=== PATIENT | male | born 1995 | race Caucasian/White ===

== ENCOUNTER 2018-07-10 12:48 | Inpatient (IN) | payer OTHER ==
[2018-07-10] MEDS ORDERED: LR 1,000 ML IV SCH (12:54)
[2018-07-10] MEDS ORDERED: ACETAMINOPHEN 500 MG TAB PO ONE (12:54)
[2018-07-10] MEDS ORDERED: ceFAZolin 2 GM/DEXTROSE 100 ML IV ONE (12:54)
[2018-07-10] MEDS ORDERED: LIDOCAINE 1% 2 ML INJ ID PRN (12:55)
[2018-07-10] MEDS ORDERED: LR 1,000 ML IV ONE (12:55)
[2018-07-10] MEDS ORDERED: CEFAZOLIN 2 GM/DEXTROSE/100 ML BAG IV ONE (13:06)
[2018-07-10] MEDS ORDERED: IOPAMIDOL (ISOVUE 370) 100 ML BTL IV ONE (14:31)
--- NOTE | 2018-07-10 15:03 | PDHOSCONS ---
<Mai Downing - Last Filed: 07/10/18 15:31> History and Physical - Chief Complaint Tachycardia, hypoxemia - History of Present Illness 23 y/o male w/ hx of irritable bowel syndrome and thrombocytopenia presents w/ tachycardia and hypoxemia. He was in [place] on Sunday for her sister's spring break and was rollerblading and subsequently fractured his right tibia. I did not inquire how exactly this happened. He went to urgent care where they splinted his right leg. Him and his family drove back to [employer] on Sunday which was approximately 10 hours worth of driving where he was in the backseat w /his RLE elevated however immobile. Since his injury, he has been sedentary. On Sunday, he was evaluated by orthopedics and it was decided to proceed w/ surgery w/pinning. Leading up to today however, he has been vomiting, febrile, decreased urine output because of decreased PO intake, and lightheaded. He denies CP, palpitations, SOB, nausea, diarrhea. Presenting today it was reported he was hypoxemic w/RA in 70s and HR 120s. Hospital medicine has been asked to consult the pt for medical management. This is my first encounter w/the pt. I evaluated him in pre-op. He was lying supine, his face flushed saturating w/ 3LNC 94% HR 120, EKG Sinus tachycardia, mildly distressed, able to complete full sentences w/o appearing to be out of breath. History Information - Allergies/Home Medication List Allergies/Adverse Reactions: bacitracin [From Neosporin ([id number])] Allergy (Verified 07/09/18 16:58) Other-Enter Comments neomycin [From Neosporin ([id number])] Allergy (Verified 07/09/18 16:58) Other-Enter Comments polymyxin B [From Neosporin ([id number])] Allergy (Verified 07/09/18 16:58) Other-Enter Comments Home Medications: Acetaminophen [Tylenol ES 500 mg (*)] 500 mg PO Q4-6PRN PRN 07/10/18 [Last Taken 07/10/18 10:00] Albuterol [Proventil Inhaler HFA (*)] 1 - 2 puffs IH Q4H PRN 07/10/18 [Last Taken 07/10/18 09:00] Hyoscyamine Sulfate [Levsin, Hyomax-Sl 0.125 mg (*)] 0.125 mg PO DAILY PRN 07/10 [Last Taken 06/26/18] Sennosides/Docusate Sodium [Senokot-S (OTC)] 1 - 2 each PO BID PRN 07/10/18 [ Last Taken 07/09/18] oxyCODONE HCL [Oxycodone HCl] 5 - 10 mg PO Q4H PRN 07/10/18 [Last Taken 10:00] I have personally reviewed and updated: family history, medical history, social history, surgical history Past Medical History: IBS. Thrombocytopenia. 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 Lives in [place], [place] Review of Systems Review of Systems: ROS: 10pt was reviewed & negative except for what was stated in HPI & below Physical Exam Physical Exam: Lab data and imaging were reviewed. Case discussed w/ Dr. Lozano and Dr. Christopher Chand WBC: 11.24 BUN/Cr: 12/0.8 EKG: see HPI Chest CTA w/contrast: bilateral PNA Constitutional: uncomfortable Eyes: PERRL, anicteric sclera, EOMI Ears, Nose, Mouth, Throat: moist mucous membranes, hearing normal, ears appear normal, no oral mucosal ulcers Cardiovascular: regular rate and rhythym, no murmur, rub, or gallop, tachycardia Peripheral Pulses: 0: dorsalis-pedis (R) (Unable to assess; splinted. Able to wiggle toes, sensation intact), 2+: dorsalis-pedis (L) Respiratory: reduced air movement Gastrointestinal: normoactive bowel sounds, soft, non-tender abdomen, no palpable masses Genitourinary: no bladder fullness, no bladder tenderness Skin: warm, normal color, no rashes or abrasions, no fluctuance, no induration, No mottled Musculoskeletal: pain with ROM (RLE) Neurologic: AAOx3, sensation intact bilaterally, CN II-XII Intact Psychiatric: interacting appropriately, not anxious, not encephalopathic, thought process linear Lymph, Heme, Immunologic: no cervical LAD, no supraclavicular LAD Lab Data & Imaging Review 07/10/18 14:15 07/10/18 14:15 Sodium 135 mEq/L (135-145) 07/10/18 14:15 Potassium 4.8 mEq/L (3.5-5.2) 07/10/18 14:15 Chloride 100 mEq/L (97-110) 07/10/18 14:15 Carbon Dioxide 24 mEq/l (22-31) 07/10/18 14:15 Anion Gap 11 mEq/L (6-14) 07/10/18 14:15 BUN 12 mg/dL (7-23) 07/10/18 14:15 Creatinine 0.8 mg/dL (0.7-1.3) 07/10/18 14:15 Estimated GFR > 60 07/10/18 14:15 Glucose 110 mg/dL (70-100) H 07/10/18 14:15 Calcium 8.7 mg/dL (8.5-10.4) 07/10/18 14:15 Total Bilirubin 1.1 mg/dL (0.1-1.4) 07/10/18 14:15 AST 73 IU/L (17-59) H 07/10/18 14:15 ALT 192 IU/L (21-72) H 07/10/18 14:15 Alkaline Phosphatase 97 IU/L (38-126) 07/10/18 14:15 Total Protein 6.7 g/dL (6.3-8.2) 07/10/18 14:15 Albumin 3.9 g/dL (3.5-5.0) 07/10/18 14:15 Assessment & Plan Plan: 23 y/o male presenting w/ right tibia fracture and was scheduled for IM nailing today w/Dr. Lozano however presented hypoxemic and tachycardic. Upon further imaging w/ Chest CTA reveals bilateral pneumonia, no pulmonary embolism(s). Current vital signs are: BP 131/76, HR 115, Resp 24, 37.6c, 93% 3L NC. Plan: -Doppler of RLE as best as possible -Treat w/ Azithromycin PO + Rocephin; procalcitonin/urine legionella + streptococcus pneumo/respiratory pathogen panel pending -Cont IVF + pulse ox monitoring -Tylenol PRN for fever -Pain management PO/IVP PRN Diet: If Ok'ed by ortho, may be Regular VTE ppx: Per recommendation from Ortho. Left leg SCD for now. Code: Full Dispo: Admit to inpatient <Ke Ferguson - Last Filed: 07/11/18 01:00> History and Physical - History of Present Illness Review of Systems Review of Systems: Physical Exam Physical Exam: Temp Pulse Resp BP Pulse Ox 37.7 C 118 H 16 114/69 93 07/11/18 00:00 07/11/18 00:00 07/11/18 00:00 07/11/18 00:00 07/11/18 00:00 O2 (L/minute) 3.5 Lab Data & Imaging Review 07/10/18 14:15 07/10/18 14:15 WBC 11.24 10^3/uL (3.80-9.50) H 07/10/18 14:15 RBC 4.32 10^6/uL (4.40-6.38) L 07/10/18 14:15 Hgb 13.7 g/dL (13.7-17.5) 07/10/18 14:15 Hct 40.2 % (40.0-51.0) 07/10/18 14:15 MCV 93.1 fL (81.5-99.8) 07/10/18 14:15 MCH 31.7 pg (27.9-34.1) 07/10/18 14:15 MCHC 34.1 g/dL (32.4-36.7) 07/10/18 14:15 RDW 14.6 % (11.5-15.2) 07/10/18 14:15 Plt Count 132 10^3/uL (150-400) L 07/10/18 14:15 MPV 15.2 fL (8.7-11.7) H 07/10/18 14:15 Neut % (Auto) 83.1 % (39.3-74.2) H 07/10/18 14:15 Lymph % (Auto) 7.8 % (15.0-45.0) L 07/10/18 14:15 [place] % (Auto) 7.9 % (4.5-13.0) 07/10/18 14:15 Eos % (Auto) 0.4 % (0.6-7.6) L 07/10/18 14:15 Baso % (Auto) 0.4 % (0.3-1.7) 07/10/18 14:15 Nucleat RBC Rel Count 0.0 % (0.0-0.2) 07/10/18 14:15 Absolute Neuts (auto) 9.34 10^3/uL (1.70-6.50) H 07/10/18 14:15 Absolute Lymphs (auto) 0.88 10^3/uL (1.00-3.00) L 07/10/18 14:15 Absolute Monos (auto) 0.89 10^3/uL (0.30-0.80) H 07/10/18 14:15 Absolute Eos (auto) 0.04 10^3/uL (0.03-0.40) 07/10/18 14:15 Absolute Basos (auto) 0.04 10^3/uL (0.02-0.10) 07/10/18 14:15 Absolute Nucleated RBC 0.00 10^3/uL (0-0.01) 07/10/18 14:15 Immature Gran % 0.4 % (0.0-1.1) 07/10/18 14:15 Immature Gran # 0.05 10^3/uL (0.00-0.10) 07/10/18 14:15 PT 13.1 SEC (12.0-15.0) 07/10/18 15:00 INR 1.03 (0.83-1.16) 07/10/18 15:00 APTT 29.9 SEC (23.0-38.0) 07/10/18 15:00 VBG Lactic Acid 1.0 mmol/L (0.7-2.1) 07/10/18 19:40 Sodium 135 mEq/L (135-145) 07/10/18 14:15 Potassium 4.8 mEq/L (3.5-5.2) 07/10/18 14:15 Chloride 100 mEq/L (97-110) 07/10/18 14:15 Carbon Dioxide 24 mEq/l (22-31) 07/10/18 14:15 Anion Gap 11 mEq/L (6-14) 07/10/18 14:15 BUN 12 mg/dL (7-23) 07/10/18 14:15 Creatinine 0.8 mg/dL (0.7-1.3) 07/10/18 14:15 Estimated GFR > 60 07/10/18 14:15 Glucose 110 mg/dL (70-100) H 07/10/18 14:15 Calcium 8.7 mg/dL (8.5-10.4) 07/10/18 14:15 Total Bilirubin 1.1 mg/dL (0.1-1.4) 07/10/18 14:15 AST 73 IU/L (17-59) H 07/10/18 14:15 ALT 192 IU/L (21-72) H 07/10/18 14:15 Alkaline Phosphatase 97 IU/L (38-126) 07/10/18 14:15 Total Protein 6.7 g/dL (6.3-8.2) 07/10/18 14:15 Albumin 3.9 g/dL (3.5-5.0) 07/10/18 14:15 Procalcitonin 0.36 ng/mL (0.02-0.10) H 07/10/18 15:19 Assessment & Plan Assessment: I have seen the patient reviewed the chart and labs and agree with ROCIO Downing in her assessment and plan.
[2018-07-10 15:06] LABS: PLATELET COUNT 132 10^3/uL (150-400)
--- NOTE | 2018-07-10 15:13 | GHP ---
[f rep st] PREOP HISTORY AND PHYSICAL DATE OF ADMISSION: 07/10/2018 HISTORY OF PRESENT ILLNESS: This is a 23-year-old male who, on 07/06, fell while roller skating in [facility]. He sustained a tibial shaft fracture. He was placed in a splint and told to return to [facility] by the emergency room there. He did drive back to [place]. He presented to my clinic where he was seen by my PA and me on Sunday, 2 days ago. He did not seem in any acute distress at that time; complained of some pain in the leg, and we made arrangements for fixation of his tibia with intramed ullary nail. There was no history given of any shortness of breath, chest pain, problems with oxygen saturation, or history of pulmonary embolus or DVT. Today, in the preoperative area when he presented before surgery, he had low saturations in the 70s, which did come up on some oxygen, and he was tachycardic to the 120s and 130s. I felt this was very concerning for pulmonary embolus and decision was made to cancel surgery and do further workup for th is with admission to the hospital. REVIEW OF SYSTEMS: GENERAL: Denies fevers or recent weight changes. EYES: Denies. ENT: Denies. CARDIOVASCULAR: He does have a history of thrombocytopenia. Also has had, on a home pulse ox, some saturations in the 80s as of Sunday night, which we were unaware of beforehand. RESPIRATORY: He st ill denies chest pain, shortness of breath. GI: Denies. : Denies. SKIN: Denies. EXTREMITIES: Complains of pain in the lower extremity. NEURO: Denies. PAST MEDICAL HISTORY: Significant for depression, thrombocytopenia, and asthma, as well as anxiety. MEDICATIONS: Home medications are hyoscyamine, as well as albuterol. ALLERGIES: No known drug allergies. FAMILY HISTORY: Reviewed and noncontributory. SURGICAL HISTORY: Noncontributory. PHYSICAL EXAMINATION: GENERAL: He is alert. He does appear in mild distress today in the preop are a. HEENT: His head is normocephalic. His eyes are equal. His mouth shows moist mucous membranes. NECK: Supple. CHEST: Clear. HEART: Does sound regular rate and rhythm. ABDOMEN: Soft. EXTREM ITIES: His upper extremities are without abnormalities. Lower extremity remains in a splint. There is no obvious increase in swelling in the right or left lower extremity. He can move his toes. He has good cap refill in his toes. VITAL SIGNS: He is tachycardic at 125, and he has a pulse ox of 92 on 3 L of oxygen. ASSESSMENT: Possible pulmonary embolus, right tibia fracture, tachycardia. PLAN: Given the concerning signs and symptoms for possibly a pulmonary embolus, we will cancel surge ry and postpone this at this time. We will initiate a workup including a CT PE protocol; Doppler of his lower extremities, we will include as much of the right lower extremity as we can given the known fracture; an EKG. We will get a CMP and CBC. He is currently being seen by the hospitalist as well in consultation. We will admit him to the hospital and, depending on the results of the workup, we will plan further surgical intervention to fix his tibia fracture. /[id number]/MODL
[2018-07-10] MEDS ORDERED: ALBUTEROL 60 PUFFS/8 GM MDI IH PRN (15:27)
[2018-07-10] MEDS ORDERED: HYOSCYAMINE SULFATE 0.125 MG TAB PO PRN (15:28)
[2018-07-10] MEDS: ACETAMINOPHEN 325 MG TAB PO PRN (15:41)
[2018-07-10] MEDS: AZITHROMYCIN 250 MG TAB PO SCH (15:41)
[2018-07-10] MEDS: NS 1,000 ML IV SCH (15:41)
[2018-07-10 15:43] LABS: INR 1.03 (0.83-1.16); PROTIME(PATIENT) 13.1 SEC (12.0-15.0)
[2018-07-10] MEDS: oxyCODONE IR 5 MG TAB PO PRN ×3 (15:44→22:55)
[2018-07-10] MEDS: ONDANSETRON 4 MG/2 ML VIAL IVP PRN (15:51)
[2018-07-10] MEDS ORDERED: SENNOSIDES/DOCUSATE SODIUM TAB PO PRN (15:57)
--- NOTE | 2018-07-10 16:47 | CPEKG ---
Test Reason : OPEN Blood Pressure : / mmHG Vent. Rate : 121 BPM Atrial Rate : 123 BPM P-R Int : 139 ms QRS Dur : 081 ms QT Int : 292 ms P-R-T Axes : 051 013 034 degrees QTc Int : 415 ms Sinus tachycardia Possible left atrial enlargement Confirmed by Jose F Fregoso ([id number]) on 07/10/2018 4:47:34 PM Referred By: Julina Lozano Confirmed By:Jose F Fregoso
--- NOTE | 2018-07-10 17:11 | PDMN ---
Medical Necessity Medical necessity: Pt meets inpt criteria per MD order and MCG [id number], Pneumonia. 23 y/o w/recent tibial shaft fx arrived for scheduled surg today,in pre-op was found to be hypoxemic w/RA sats in 70's and tachycardic w/HR 120s- 130s. Surgery canceled for today for further workup. Chest CTA reveals bilateral pneumonia, procalcitonin elevated at .36, WBC's 11.2. IV abx's, IVF, pain management, 3L O2 (93%), surg intervention to fix tibia fx pending.
[2018-07-10] MEDS: ENOXAPARIN 30 MG/0.3 ML SYR SC SCH ×2 (18:11→20:59)
[2018-07-10] MEDS ORDERED: MAGNESIUM HYDROXIDE 30 ML UDCUP PO PRN (18:42)
[2018-07-10] MEDS ORDERED: LACTULOSE 20 GM/30 ML UDCUP PO PRN (18:42)
[2018-07-10] MEDS ORDERED: BISACODYL 10 MG SUPP PR PRN (18:42)
[2018-07-10] MEDS: POLYETHYLENE GLYCOL 3350 17 GM PKT PO PRN (18:56)
[2018-07-10] MEDS ORDERED: NS 2,200 ML IV ONE (19:01)
[2018-07-10] MEDS: SENNOSIDES/DOCUSATE SODIUM TAB PO SCH (20:58)
[2018-07-10] MEDS: HYDROmorphONE/DILAUDID 1 MG/ML INJ IVP PRN (21:18)
[2018-07-11] MEDS: oxyCODONE IR 5 MG TAB PO PRN ×7 (03:11→22:58)
[2018-07-11] MEDS: HYDROmorphONE/DILAUDID 1 MG/ML INJ IVP PRN ×2 (04:13→15:24)
[2018-07-11] MEDS ORDERED: DIAZEPAM 5 MG TAB PO PRN (04:28)
[2018-07-11] MEDS: NS 1,000 ML IV SCH ×2 (06:00→13:20)
[2018-07-11] MEDS: ACETAMINOPHEN 325 MG TAB PO PRN (07:26)
[2018-07-11] MEDS: SENNOSIDES/DOCUSATE SODIUM TAB PO SCH ×2 (07:28→19:59)
[2018-07-11] MEDS: POLYETHYLENE GLYCOL 3350 17 GM PKT PO PRN (07:29)
[2018-07-11] MEDS: AZITHROMYCIN 250 MG TAB PO SCH (07:29)
[2018-07-11] MEDS: ENOXAPARIN 30 MG/0.3 ML SYR SC SCH ×2 (07:31→19:58)
--- NOTE | 2018-07-11 08:46 | HOSPPROG ---
Hospitalist Progress Note Assessment/Plan: 23 y/o male presenting w/ right tibia fracture and was scheduled for IM nailing today w/Dr. Lozano however presented hypoxemic and tachycardic. Upon further imaging w/ Chest CTA reveals bilateral pneumonia, no pulmonary embolism. First encounter, chart reviewed. *pna -blood cx pending -procalcitonin elevated at 0.36 -urine legionella, Strep pneumo pending -azithro and ceftriaxone -has small bilateral pleural effusions *tachycardia -from pain and pna -reviewed his 12 lead which shows sinus tachycardia *thrombocytopenia -hx of this, no clear cut etiology *r lower lobe noncalcified, non specific 10 mm lung nodule -will need repeat imaging in 3 months -patient is a non smoker *hx of IBS *r tibia fx -OR tomorrow -pain has been the issue w sedation, trial of Robaxin *DVT prophylaxis: Lovenox per ortho Subjective: Leonid is c/o right lower leg pain. Objective: Vital Signs Temp Pulse Resp BP Pulse Ox 37.2 C 114 H 18 114/73 95 07/11/18 07:48 07/11/18 07:48 07/11/18 07:48 07/11/18 07:48 07/11/18 07:48 Microbiology 07/10/18 18:15 Respiratory Panel (PCR) - Final Nasal, Sinus - Swab No Organism Detected By Pcr Laboratory Results 07/10/18 14:15 07/10/18 14:15 07/10/18 07/11/18 07/12/18 05:59 05:59 05:59 Intake Total 475 3025 Output Total 1975 400 Balance -1500 2625 PT 13.1 SEC (12.0-15.0) 07/10/18 15:00 INR 1.03 (0.83-1.16) 07/10/18 15:00 - Physical Exam Constitutional: appears nourished, uncomfortable, No not in pain Eyes: PERRL Ears, Nose, Mouth, Throat: hearing normal Cardiovascular: regular rate and rhythym, tachycardia Respiratory: no respiratory distress Skin: warm, other (right toes warm), No normal color (flushed) Neurologic: AAOx3 Psychiatric: interacting appropriately ICD10 Worksheet Patient Problems: Problems Problem Status Onset Pneumonia Acute - ICD10 Problem Qualifiers (1) Pneumonia Qualifiers: Laterality: bilateral
[2018-07-11] MEDS: METHOCARBAMOL 750 MG TAB PO PRN ×3 (09:03→16:17)
[2018-07-11] MEDS: ACETAMINOPHEN 500 MG TAB PO SCH ×3 (10:38→22:56)
--- NOTE | 2018-07-11 11:52 | ASMTCMCOM ---
CM Note CM Note Notes: Reviewed chart, pt was in [place] visiting sister, they went roll[place]skating and he fell causing a right tibia fx. He and his family drove back to [place]. He had a scheduled sugery plan to fix leg but developed sob and tachycardia. There was concern for PE but imaging revealed bilat pnuemonia. Uncertain when pt will get surgery, CM w/f for POC. 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 DC Plan: TBD Date Signed: 07/11/2018 11:52 AM Electronically Signed By:Lorri Chung RN
[2018-07-11] MEDS ORDERED: IPRATROPIUM/ALBUTEROL 3 ML DEYVIAL IH PRN (11:53)
[2018-07-11] MEDS: IPRATROPIUM/ALBUTEROL 3 ML DEYVIAL IH PRN ×2 (12:35→20:06)
--- NOTE | 2018-07-11 12:54 | SOAPPROG ---
SOAP Progress Note Assessment/Plan: Assessment: 23 y/o male with right mid-shaft tibia fracture and new dx of bilateral PNA. Plan: NPO after midnight for surgery on 07/12/18 Elevation, Ice, Posterior Splint in place. Lovenox DVT PPx Oxycodone changed to q 3 hours prn severe pain. Surgery of ORIF right ankle and IM Tibial Randal tomorrow morning NWB on RLE 07/11/18 12:51 Subjective: 23 y/o male who was admitted after episode of tachycardia and dyspnea. Patient has still been having pain into his right LE and as well difficulty with taking deep breathes. He has been able to finally keep down food last night. He has no other complaints at this time. He denies any CP, palpitations, stomach pain, nausea, vomiting. Objective: AOx4 Mild discomfort laying in bed RLE splint in place 2+ Dorsal pedal pulse <2 capillary refill Vital Signs Temp Pulse Resp BP Pulse Ox 36.6 C 107 H 19 136/83 H 95 07/11/18 12:00 07/11/18 12:00 07/11/18 12:00 07/11/18 12:00 07/11/18 12:00 Microbiology 07/10/18 18:15 Respiratory Panel (PCR) - Final Nasal, Sinus - Swab No Organism Detected By Pcr Laboratory Results 07/10/18 14:15 07/10/18 14:15 07/10/18 07/11/18 07/12/18 05:59 05:59 05:59 Intake Total 475 3025 Output Total 1975 400 Balance -1500 2625 PT 13.1 SEC (12.0-15.0) 07/10/18 15:00 INR 1.03 (0.83-1.16) 07/10/18 15:00 - Pending Discharge Pending Discharge Within 24 Hours: No Pending Discharge Within 48 Hours: No ICD10 Worksheet Patient Problems: Problems Problem Status Onset Pneumonia Acute
[2018-07-11] MEDS ORDERED: DOXYCYCLINE INJ 100 MG in NS 250 ML IV SCH (16:00)
[2018-07-11] MEDS: ONDANSETRON 4 MG/2 ML VIAL IVP PRN (16:14)
--- NOTE | 2018-07-11 17:38 | PDCONSULT ---
Pediatric Dental Assistant Note: Infectious Diseases Consult Note Impression: 23-year-old man with community onset pneumonia that fits an atypical pathogen pattern. His exposures create the differential that would include Q fever, Legionella, mycoplasma, Coccidioides infection. Overall his imaging appears worse than he appears clinically from a pulmonary standpoint. Although there is a theoretical risk for seeding any orthopedic hardware if he in fact does have Q fever pneumonia, this is a low likelihood event and he should go forward with planned operative fixation of the lower extremity as this is causing him significant distress. Although initially did. That his mild transaminase elevation and mild thrombocytopenia were part of a clinical syndrome more suggestive of particular atypical pneumonia pathogens, his mother stated at a later time that dating back to at least 2014 he has had similar lab abnormalities. Overall the goal be to improve his pain with operative fixation of his right lower extremity fracture, ensure resolution of his pulmonary infection, and then evaluate over time for the cause of his thrombocytopenia and potentially chronic transaminase elevation. 1. Community onset pneumonia, likely atypical pathogen 2. Hypoxia requiring supplemental oxygen 3. Right lower extremity fracture, planned operative fixation tomorrow 4. Thrombocytopenia, unclear if acute or related to chronic disease 5. Mild transaminase elevation, unclear if acute or related to chronic disease 6. Irritable bowel syndrome Plan: 1. Continue ceftriaxone 2. Stop azithromycin 3. Start IV doxycycline 4. Lab testing ordered; HIV test, repeat CBC with differential and CMP for tomorrow, Q fever serology, Coccidioides serology 5. Reviewed in detail potential side effects of beta-lactam antibiotics to include: allergy, rash, nausea, antibiotic-associated diarrhea, Clostridioides difficile colitis. 6. Reviewed in detail potential side effects of doxycycline to include: allergy , rash, nausea, antibiotic-associated diarrhea, Clostridioides difficile colitis , photosensitivity, heart burn, pigmented rash. Shoaib Olivas MD Infectious Diseases Chief Complaint: Fever and diaphoresis Requesting Provider: Erinn Moreno Reason for Referral: Consultation was requested by Erinn Moreno regarding antimicrobial management. HPI: 23-year-old man who presented to the hospital for evaluation of for fevers and to undergo fixation his right leg fracture. Chronology of Present Illness: Location of symptoms: Pulmonary Onset of symptoms: Approximately 5 days prior to admission Initial signs/symptoms: Fever, diaphoresis, night sweats Associated signs/symptoms at onset: Decreased oxygen saturation as measured by a home finger saturation device and occasional nonproductive cough Changes since onset: Decreased fever intensity, ongoing periodic diaphoresis Exacerbating factors: None identified Relieving factors: None identified Antibiotics since symptom onset: Ceftriaxone and azithromycin since admission; no outpatient antibiotics Change in symptoms with antibiotics: Decreased fever intensity Relevant social history: He has recently traveled to [place] to visit grandparents who lived on the edge of a housing sub Division with open land near them, no livestock near the grandparents home. He fractured his right leg rule or bleeding with a adventist group, 1st time roller blading which he also states will be his last time roller blading. He notes otherwise feeling well during that trip except for the pain related to his leg fracture. He drove back from [place] with his who is well without any illnesses, and his father who flew to [place] to drive back with them, who is also well without any illnesses. He notes upon the return that he began having fevers throughout the day with an increasing intensity starting approximately 5 days prior to admission, which included pretty dramatic diaphoresis. He notes no rash, arthralgias, myalgias. He lives in [facility]. He does visit his parent's home frequently, they have a small farm with goats with calving this spring. Patient did not assist with any births but has visited the farm during and since. At home he and his have 3 dribbles, tarantulas, scorpions. He has had no rodent exposure, particularly no exposure to mice, or [place] dogs. He notes feeling slightly improved since admission with decreased shortness of breath, decreased fever intensity. Relevant PMHx/PSHx: Patient's mother notes that he had thrombocytopenia and mild transaminase level dating back to 2014 without subsequent laboratory testing. Reviewed patient medical records in [facility], [place], and [facility] Information Organization ([facility]). Travel history: International travel limited to [place] including [place] and [place] most recently as high school senior; he was in [place] [birth year] birthday for approximately 4 days in mid June of 2018 Past Medical History: Irritable bowel syndrome Past Surgical History: Urethral surgery as a young child Social History: Does not use tobacco products; Does not consume marijuana products; has drink alcohol or 1 occasion is life in his 23st birthday approximately 2 and half weeks prior to this admission; Does not use any other drugs currently or in the past Family History: Sister who is 2 years older is had a diagnosed pulmonary infections Allergies: No known antibiotic allergies Medications: Reviewed in medical record. ROS: 10 organ systems reviewed; pertinent positives and negatives listed in the HPI, all other organ systems negative. Physical Exam: VS: Reviewed Gen: No acute distress; Breathing comfortably with supplemental oxygen via nasal cannula; Able to speak in complete sentences Eyes: No conjunctival injection; No scleral icterus HENT: No gross deformities Neck: No limitation in range of motion Pulm: Audible inspiratory sounds to the bases bilaterally; No wheeze, rhonchi, or rales CV: Normal S1 and S2; Regular tachycardia; No murmurs, rubs, or gallops; No lower extremity edema Abd: Not distended; Normo-active bowel sounds; Soft; Non-tender Skin: A full skin exam including exposed bilateral upper extremities, bilateral lower extremities to the knees, face, neck, abdomen, chest, and back performed; Skin intact, warm, with no rash MSK: Joints without erythema or edema; No gross limitation in range of motion; right lower extremity in splint, not taken down Ext: No clubbing or cyanosis Neuro: Awake and alert; somnolent at times after narcotic analgesia Psych: Normal mood and blunted affect Labs/Imaging: All microbiology testing (culture and non-culture) reviewed in the medical record. Personally reviewed and interpreted the images of the following radiographs: Chest CT showing patchy bilateral pneumonia predominantly on the left side; reviewed the images and person with the patient and at a later revisit with patient's , mother, and father with his verbal consent. Medications Generic Name Dose Route Start Last Admin Trade Name Freq PRN Reason Stop Dose Admin Ceftriaxone Sodium/Dextrose 50 mls @ 100 mls/hr 07/10/18 15:30 07/11/18 07:31 Rocephin 1 Gm (Premix) IV 08/09/18 15:29 50 mls DAILY [facility] Protocol Doxycycline Hyclate 100 mg/ 260 mls @ 260 mls/hr 07/11/18 16:00 07/11/18 16: 18 Sodium Chloride IV 08/10/18 15:59 260 mls Q12H [facility] Protocol Discontinued Medications Generic Name Dose Route Start Last Admin Trade Name Freq PRN Reason Stop Dose Admin Azithromycin 500 mg 07/10/18 15:15 07/11/18 07:29 Zithromax PO 08/09/18 15:14 500 mg DAILY [facility] Protocol Laboratory Tests 07/10/18 07/10/18 07/10/18 14:15 14:15 15:19 WBC 11.24 H Hgb 13.7 Hct 40.2 Plt Count 132 L Absolute Neuts (auto) 9.34 H Absolute Lymphs (auto) 0.88 L Creatinine 0.8 AST 73 H ALT 192 H Procalcitonin 0.36 H Urine Legionella Ag Ur Strep pneumoniae Ag 07/10/18 17:30 WBC Hgb Hct Plt Count Absolute Neuts (auto) Absolute Lymphs (auto) Creatinine AST ALT Procalcitonin Urine Legionella Ag Pending Ur Strep pneumoniae Ag Pending Ongoing monitoring for antimicrobial toxicity with: CBC, BMP, interval historical information, and interval physical exam. Rpis-mc-llte time with patient: 100 minutes with >50% of ntad-ll-ymer time spent in counseling, patient education, and coordinating care. Counseling provided included the microbiology of atypical pneumonia, Q fever pneumonia, Legionella pneumonia, mycoplasma pneumonia, expected findings for typical bacterial pneumonia, Coccidioides pneumonia, expected time to resolution, natural history without treatment, and side effects of treatment.
[2018-07-11] MEDS: DOXYCYCLINE INJ 100 MG in NS 250 ML IV SCH (19:55)
[2018-07-12] MEDS: HYDROmorphONE/DILAUDID 1 MG/ML INJ IVP PRN ×4 (03:27→22:56)
[2018-07-12 05:06] LABS: PLATELET COUNT 128 10^3/uL (150-400)
[2018-07-12] MEDS: ACETAMINOPHEN 500 MG TAB PO SCH ×3 (06:12→21:15)
[2018-07-12] MEDS ORDERED: ceFAZolin 2 GM/DEXTROSE 100 ML IV ONE (08:00)
--- NOTE | 2018-07-12 08:25 | PDANEPAE ---
ANE Past Medical History - Cardiovascular History Hx Hypertension: No Hx Arrhythmias: No Hx Chest Pain: No Hx Coronary Artery / Peripheral Vascular Disease: No Hx CHF / Valvular Disease: No Hx Palpitations: No - Pulmonary History Hx COPD: No Hx Asthma/Reactive Airway Disease: Yes Hx Recent Upper Respiratory Infection: Yes Hx Oxygen in Use at Home: No Hx Sleep Apnea: No Sleep Apnea Screening Result - Last Documented: Negative Pulmonary History Comment: currently treated for pneumonia - Neurologic History Hx Cerebrovascular Accident: No Hx Seizures: No Hx Dementia: No - Endocrine History Hx Diabetes: No Hypothyroid: No Hyperthyroid: No Obesity: no - Renal History Hx Renal Disorders: No - Liver History Hx Hepatic Disorders: No - Neurological & Psychiatric Hx Hx Neurological and Psychiatric Disorders: Yes Neurological / Psychiatric History Comment: anxiety and depression - Cancer History Hx Cancer: No - Congenital Disorder History Hx Congenital Disorders: No - GI History GERD: no Hx Gastrointestinal Disorders: Yes Gastrointestinal History Comment: IBS - Other Health History Other Health History: hx thrombocytopenia - Chronic Pain History Chronic Pain: No - Surgical History Prior Surgeries: wisdom teeth extraction ANE Review of Systems Review of Systems: - Exercise capacity Exercise capacity: >=4 METS, limited by disability METS (RN): 5 METS ANE Patient History - Allergies Allergies/Adverse Reactions: bacitracin [From Neosporin ([id number])] Allergy (Verified 07/12/18 09:11) neomycin [From Neosporin ([id number])] Allergy (Verified 07/12/18 09:11) polymyxin B [From Neosporin ([id number]-czcyx)] Allergy (Verified 07/09/18 16:58) Other-Enter Comments - Home Medications Home Medications: Acetaminophen [Tylenol ES 500 mg (*)] 500 mg PO Q4-6PRN PRN 07/10/18 [Last Taken 07/10/18 10:00] Albuterol [Proventil Inhaler HFA (*)] 1 - 2 puffs IH Q4H PRN 07/10/18 [Last Taken 07/10/18 09:00] Hyoscyamine Sulfate [Levsin, Hyomax-Sl 0.125 mg (*)] 0.125 mg PO DAILY PRN 07/10 [Last Taken 06/26/18] Sennosides/Docusate Sodium [Senokot-S (OTC)] 1 - 2 each PO BID PRN 07/10/18 [ Last Taken 07/09/18] oxyCODONE HCL [Oxycodone HCl] 5 - 10 mg PO Q4H PRN 07/10/18 [Last Taken 10:00] - NPO status NPO Since - Liquids (Date): 07/12/18 NPO Since - Liquids (Time): 00:00 NPO Since - Solids (Date): 07/12/18 NPO Since - Solids (Time): 00:00 - Anes Hx Anes Hx: no prior problems - Smoking Hx Smoking Status: Never smoked Marijuana use: No - Alcohol Use Alcohol Use: None - Family Anes Hx Family Anes Hx: neg - N/A Family Hx Anesthesia Complications: none ANE Labs/Vital Signs - Labs Result Diagrams: 07/12/18 04:25 07/12/18 04:25 - Vital Signs Blood Pressure: 147/80 Heart Rate: 112 Respiratory Rate: 19 O2 Sat (%): 95 Height: 167.64 cm Weight: 74.843 kg ANE Physical Exam - Airway Neck exam: FROM Mallampati Score: Class 2 Mouth exam: normal dental/mouth exam - Pulmonary Pulmonary: no respiratory distress, no rales or rhonchi, clear to auscultation, reduced air movement - Cardiovascular Cardiovascular: regular rate and rhythym, no murmur, rub, or gallop - ASA Status ASA Status: II ANE Anesthesia Plan Anesthesia Plan: GA w LMA Regional Anesthesia: single shot NB, adductor canal FNB, popliteal SNB Total IV Anesthesia: No
[2018-07-12] MEDS ORDERED: LR 1,000 ML IV ONE (08:42)
--- NOTE | 2018-07-12 08:59 | HOSPPROG ---
Hospitalist Progress Note Assessment/Plan: 23 y/o male presenting w/ right tibia fracture and was scheduled for IM nailing today w/Dr. Lozano however presented hypoxemic and tachycardic. Upon further imaging w/ Chest CTA reveals bilateral pneumonia, no pulmonary embolism. *pna -blood cx show no growth -procalcitonin elevated at 0.36 -urine legionella, Strep pneumo neg -doxy and ceftriaxone -has small bilateral pleural effusions *tachycardia -from pain and pna -reviewed his 12 lead which shows sinus tachycardia *thrombocytopenia -hx of this, no clear cut etiology *r lower lobe noncalcified, non specific 10 mm lung nodule -will need repeat imaging in 3 months -patient is a non smoker *hx of IBS *r tibia fx -OR today *DVT prophylaxis: Lovenox per ortho Subjective: Leonid is anxious to get surgery done. Objective: Vital Signs Temp Pulse Resp BP Pulse Ox 37.3 C 103 H 18 147/80 H 96 07/12/18 08:32 07/12/18 08:32 07/12/18 08:32 07/12/18 08:32 07/12/18 08:32 Laboratory Results 07/12/18 04:25 07/12/18 04:25 07/11/18 07/12/18 07/13/18 05:59 05:59 05:59 Intake Total 475 3635 Output Total 1975 3350 550 Balance -1500 285 -550 PT 13.1 SEC (12.0-15.0) 07/10/18 15:00 INR 1.03 (0.83-1.16) 07/10/18 15:00 - Physical Exam Constitutional: appears nourished, uncomfortable, No not in pain Eyes: PERRL Ears, Nose, Mouth, Throat: hearing normal Cardiovascular: regular rate and rhythym, tachycardia Respiratory: no respiratory distress, reduced air movement (bibasilar) Skin: warm, other (face flushed) Musculoskeletal: other (good cms on right foot) Neurologic: AAOx3 Psychiatric: interacting appropriately ICD10 Worksheet Patient Problems: Problems Problem Status Onset Pneumonia Acute - ICD10 Problem Qualifiers (1) Pneumonia Qualifiers: Laterality: bilateral
[2018-07-12] MEDS ORDERED: BUPIVACAINE/EPI 0.25% 30 ML SDV ONE (09:29)
[2018-07-12] MEDS ORDERED: POLYMYXIN B SULFATE 500,000 UNIT/10 ML SYR IRR ONE (09:30)
[2018-07-12] MEDS ORDERED: BACITRACIN 50,000 UNITS/10 ML SYR IRR ONE (09:31)
[2018-07-12] MEDS ORDERED: fentaNYL 100 MCG/2 ML INJ ONE ×3 (09:35→11:39)
[2018-07-12] MEDS ORDERED: fentaNYL 100 MCG/2 ML INJ IV ONE (10:00)
--- NOTE | 2018-07-12 10:25 | SOAPPROG ---
SOAP Progress Note Assessment/Plan: Assessment: tibial shaft fx pneumonia Plan: stable to go to OR ORIF tibial fx 07/12/18 10:25 Subjective: pain in leg Objective: Vital Signs Temp Pulse Resp BP Pulse Ox 37.4 C 106 H 23 H 133/83 H 90 L 07/12/18 09:08 07/12/18 09:08 07/12/18 09:08 07/12/18 09:08 07/12/18 09:08 Laboratory Results 07/12/18 04:25 07/12/18 04:25 07/11/18 07/12/18 07/13/18 05:59 05:59 05:59 Intake Total 475 3635 Output Total 1975 3350 550 Balance -1500 285 -550 PT 13.1 SEC (12.0-15.0) 07/10/18 15:00 INR 1.03 (0.83-1.16) 07/10/18 15:00 dressing and splint intact ICD10 Worksheet Patient Problems: Problems Problem Status Onset Pneumonia Acute
[2018-07-12] MEDS ORDERED: MIDAZOLAM 2 MG/2 ML VIAL ONE ×2 (10:44→13:20)
[2018-07-12] MEDS ORDERED: BUPIVACAINE 0.5% 30 ML SDV ONE (10:57)
[2018-07-12] MEDS ORDERED: PROPOFOL 200 MG/20 ML VIAL ONE (10:58)
[2018-07-12] MEDS: DOXYCYCLINE INJ 100 MG in NS 250 ML IV SCH ×2 (11:40→19:55)
[2018-07-12] MEDS ORDERED: ONDANSETRON 4 MG/2 ML VIAL IVP PRN ×2 (12:04→13:38)
[2018-07-12] MEDS ORDERED: fentaNYL 100 MCG/2 ML INJ IVP PRN (12:04)
[2018-07-12] MEDS ORDERED: oxyCODONE IR 5 MG TAB PO PRN (12:04)
[2018-07-12] MEDS ORDERED: HYDROmorphONE/DILAUDID 1 MG/ML INJ IVP PRN (12:04)
[2018-07-12] MEDS ORDERED: HYDROCODONE/APAP 5/325 TAB PO PRN (12:04)
[2018-07-12] MEDS ORDERED: ALBUTEROL 3 ML DEYVIAL IH PRN (12:04)
[2018-07-12] MEDS ORDERED: PHENYLEPHRINE HCL 100 MCG/ML SYR IVP PRN (12:04)
[2018-07-12] MEDS ORDERED: PROMETHAZINE HCL 25 MG/ML INJ IVP PRN (12:04)
[2018-07-12] MEDS ORDERED: NALOXONE HCL 0.4 MG/ML INJ IVP PRN (12:04)
[2018-07-12] MEDS ORDERED: LR 500 ML IV PRN (12:04)
[2018-07-12] MEDS ORDERED: ACETAMINOPHEN 500 MG TAB PO PRN (12:04)
--- NOTE | 2018-07-12 13:34 | POSTOPPROG ---
Post Op Note Date of Operation: 07/12/18 Surgeon: Julian Lozano Sea Kayaking Guide: Nacho Anesthesia: GET(General Endotracheal) Pre-op Diagnosis: R tibia fx, post mal fx Post-op Diagnosis: same Indication: above Procedure: ORIF R tibia, orifright postmal fx Inf/Abcess present in the surg proc area at time of surgery?: No EBL: 100-500
[2018-07-12] MEDS: SENNOSIDES/DOCUSATE SODIUM TAB PO SCH ×2 (14:29→20:01)
--- NOTE | 2018-07-12 14:29 | POSTANESTH ---
Post Anesthetic Evaluation Cardiovascular Status: Normal, Stable Respiratory Status: Similar to Pre-op Cond. Level of Consciousness/Mental Status: Can Participate in Eval Pain Control: Adequate, Prn Tx Ordered Nausea/Vomiting Control: Adequate, Prn Tx Ordered Complications Possibly Related to Anesthesia: None Noted
[2018-07-12] MEDS: oxyCODONE IR 5 MG TAB PO PRN ×4 (15:06→21:48)
[2018-07-12] MEDS: METHOCARBAMOL 750 MG TAB PO PRN ×2 (15:08→22:58)
[2018-07-12] MEDS: IPRATROPIUM/ALBUTEROL 3 ML DEYVIAL IH PRN (15:49)
--- NOTE | 2018-07-12 16:35 | GOP ---
[f rep st] OPERATIVE REPORT DATE OF OPERATION: 07/12/2018 SURGEON: Julian Lozano MD DRUG ABUSE TECHNICIAN: Chidi Griffith MD ANESTHESIA: General with single-shot popliteal and adductor canal for postop pain control. PREOPERATIVE DIAGNOSIS: 1. Right tibia fracture. 2. Right posterior malleolus fracture. POSTOPERATIVE DIAGNOSIS: 1. Right tibia fracture. 2. Right posterior malleolus fracture. PROCEDURE PERFORMED: 1. Open reduction, internal fixation right posterior malleolus fracture. 2. Right open reduction, internal fixation of tibial shaft fracture, tibial intramedullary nail. FINDINGS: SPECIMENS: None. ESTIMATED BLOOD LOSS: 200 mL. INDICATIONS: This is a male who sustained this fracture in [place]. He came to my clinic [address] We initially set him up for surgery; however, he developed a pneumonia. After workup and treat ment of this, we were able to get clearance to go to surgery and he elected for the above procedure. We discussed risks of nonunion, malunion, continued pain, nerve injury, blood clot, infection, and h e elected to proceed. Informed consent obtained. All questions were answered. He was marked preope ratively. DESCRIPTION OF PROCEDURE: He was taken to the operative suite, sterilely prepped and draped in the u sual fashion. Time-out was performed verifying the site, side, location, and there was agreement by everyone on the team. The tourniquet was not utilized throughout the case. I made a small incision over the anterior lateral ankle and dissected down to bone. I placed a guide wire, checked this fluoroscopically, drilled and placed two 4.0 Cancellous screws stabilizing the pos terior malleolus fracture. I then made a tendon splitting approach to the knee and dissected this to the entry point for the tibia nail. I placed a provisional guide pin, checked this with AP and late ral fluoroscopy, and used the entry drill. I then placed a guidewire down across the fracture site k eeping the fracture reduced. I started with an 8.5 reamer and reamed up to 10 while checking x-rays of the fracture reduction reamer length. I had measured the nail prior to this. I selected a 339 mm nail and placed this down across the fracture site, and this helped reduce the fracture, and I held the reduction while my assistant sales director placed this. I then placed proximal and distal interlock screws. T ook final x-rays confirming good screw placement, hardware placement, fracture reduction. He was irrigated, closed with #1 Vicryl, 0 Vicryl, 2-0 Vicryl, 3-0 Quill, 3-0 nylon, and Dermabond. He was taken to the PACU in stable condition. COMPLICATIONS: None. DRAINS: None. CONDITION: Stable. /[id number]/MODL
[2018-07-12] MEDS: ENOXAPARIN 30 MG/0.3 ML SYR SC SCH (20:03)
[2018-07-13] MEDS: oxyCODONE IR 5 MG TAB PO PRN ×9 (01:14→23:59)
[2018-07-13] MEDS: HYDROmorphONE/DILAUDID 1 MG/ML INJ IVP PRN ×2 (02:28→10:13)
[2018-07-13] MEDS ORDERED: LORazepam 2 MG/ML INJ IVP ONE (03:10)
[2018-07-13] MEDS: ACETAMINOPHEN 500 MG TAB PO SCH ×3 (06:17→22:06)
[2018-07-13] MEDS: DOXYCYCLINE INJ 100 MG in NS 250 ML IV SCH (07:58)
[2018-07-13] MEDS: ENOXAPARIN 30 MG/0.3 ML SYR SC SCH ×2 (08:02→22:08)
[2018-07-13] MEDS: METHOCARBAMOL 750 MG TAB PO PRN ×4 (08:02→22:06)
--- NOTE | 2018-07-13 08:58 | SOAPPROG ---
SOAP Progress Note Assessment/Plan: Assessment: 23 y/o male with right mid-shaft tibia fracture ORIF postop day 1 and dx of bilateral PNA. Plan: Continue with oral oxycodone 15 mg every 4 hr Continue with Robaxin for muscle spasms Elevation and ice PT/OT Plan discussed with Dr. Lozano 07/13/18 08:54 Subjective: 23-year-old male who is postop day 1. From a right tibial midshaft ORIF and posterior malleolus ORIF. Patient had difficulty last night with pain control. Patient was having significant pain into his knee and midshaft of his tibia hand the pain medication dosing through last night did not control his pain well. He states that he feels like he under evaluated his pain on the pain scale. Patient has hand little bit of feeling his heart was racing and could not get comfortable with his uncontrolled pain. Patient denies any fevers chills and lightheadedness dizziness. Objective: 23-year-old male alert and oriented mild distress and discomfort. Dressings clean dry and intact 2+ dorsal pedal pulse Able to wiggle his toes Neurological intact Vital Signs Temp Pulse Resp BP Pulse Ox 36.9 C 79 16 141/86 H 98 07/13/18 07:50 07/13/18 07:50 07/13/18 07:50 07/13/18 07:50 07/13/18 07:50 Laboratory Results 07/12/18 04:25 07/12/18 04:25 07/12/18 07/13/18 07/14/18 05:59 05:59 05:59 Intake Total 3635 3250 Output Total 3350 1350 Balance 285 1900 PT 13.1 SEC (12.0-15.0) 07/10/18 15:00 INR 1.03 (0.83-1.16) 07/10/18 15:00 - Pending Discharge Pending Discharge Within 24 Hours: No Pending Discharge Within 48 Hours: Yes Pending Discharge Date: 07/15/18 Pending Discharge Time: 11:00 ICD10 Worksheet Patient Problems: Problems Problem Status Onset Pneumonia Acute
[2018-07-13] MEDS: SENNOSIDES/DOCUSATE SODIUM TAB PO SCH ×2 (09:19→22:07)
--- NOTE | 2018-07-13 10:16 | PCMIDPN ---
Assessment/Plan: 1. Atypical pneumonia in patient with minimal symptoms status post right ORIF: Patient had very few symptoms at baseline, with only a mild cough and low-grade fever. He feels better, and importantly, his tachycardia is improving. Would treat with ceftriaxone for 1 more day to complete 5 days of therapy with this antibiotic; because he is not on and azithromycin based regimen for atypical pathogens which has a much longer half-life, would treat with doxycycline for 10 days total, or another 6 days, stop date July 19. 07/13/18 10:17 Subjective: Status post right ORIF. Tachycardia seems to be resolving. He is presently working with respiratory therapy with his incentive spirometer. He states that he really never felt unwell other than a very mild dry cough and low-grade fever. No diarrhea on the antibiotics. No sore throat. Looks flushed, but patient's mother states that he always has red cheeks, as does his sister. Objective: Ceftriaxone 1 g IV daily day 4 Doxycycline 100 mg twice daily day 2 (atypical coverage day 4) T-max 37.3 degrees Vital Signs Temp Pulse Resp BP Pulse Ox 36.9 C 79 16 141/86 H 98 07/13/18 07:50 07/13/18 07:50 07/13/18 07:50 07/13/18 07:50 07/13/18 07:50 Laboratory Results 07/12/18 04:25 07/12/18 04:25 07/12/18 07/13/18 07/14/18 05:59 05:59 05:59 Intake Total 3635 3250 Output Total 3350 1350 Balance 285 1900 RP P negative - Physical Exam General Appearance: other (In bed, has washcloth on his forehead, does not look toxic.) EENT: pharynx normal, No scleral icterus, No thrush Respiratory: other (Very faint crackles heard right upper lung field, otherwise fairly clear anterolaterally.) Cardiac/Chest: regular rate, rhythm, No tachycardia Extremities: other (Right lower extremity splinted and wrapped with an Smith bandage that I did not take down.) Abdomen: non-tender, soft ICD10 Worksheet Patient Problems: Problems Problem Status Onset Pneumonia Acute
[2018-07-13] MEDS ORDERED: HYDROmorphONE/DILAUDID 2 MG TAB PO PRN (10:49)
[2018-07-13] MEDS ORDERED: LORazepam 1 MG TAB PO ONE (11:29)
--- NOTE | 2018-07-13 11:40 | HOSPPROG ---
Hospitalist Progress Note Assessment/Plan: 23 y/o male presenting w/ right tibia fracture and was scheduled for IM nailing today w/Dr. Lozano however presented hypoxemic and tachycardic. Upon further imaging w/ Chest CTA reveals bilateral pneumonia, no pulmonary embolism. *pna -blood cx show no growth -procalcitonin elevated at 0.36 -urine legionella, Strep pneumo neg -doxy and ceftriaxone/reviewed his care w Dr Dasilva, one more day of Ceftriaxone and doxy for a total of 10 days-stop date July 19 -has small bilateral pleural effusions *r mid-shaft tibia fracture ORIF postop day 1 *severe pain due to the surgery -has good pulses, was evaluated by surgery earlier, no compartment syndrome -oral oxy is not working, will try oral Dilaudid *tachycardia -from pain and pna -improving, suspect he has some anxiety *thrombocytopenia -hx of this, no clear cut etiology *r lower lobe noncalcified, non specific 10 mm lung nodule -will need repeat imaging in 3 months -patient is a non smoker *hx of IBS *elevated LFT's -recheck in the a.m. *DVT prophylaxis: Lovenox per ortho *plan: will do a trial of oral Dilaudid, if no improvement, will try Morphine IR , he has gotten relief w the IV morphine, will give a dose of oral activa to see if this helps. Subjective: Leonid said pain is severe and frequently asks when he got his last pain medication Objective: Vital Signs Temp Pulse Resp BP Pulse Ox 36.9 C 79 16 141/86 H 98 07/13/18 07:50 07/13/18 07:50 07/13/18 07:50 07/13/18 07:50 07/13/18 07:50 Microbiology 07/13/18 10:30 Respiratory Panel (PCR) - Final Nasal, Sinus - [place] Viral Transport 07/10/18 18:15 Respiratory Panel (PCR) - Final Nasal, Sinus - Swab No Organism Detected By Pcr Laboratory Results 07/12/18 04:25 07/12/18 04:25 07/12/18 07/13/18 07/14/18 05:59 05:59 05:59 Intake Total 3635 3250 Output Total 3350 1350 Balance 285 1900 PT 13.1 SEC (12.0-15.0) 07/10/18 15:00 INR 1.03 (0.83-1.16) 07/10/18 15:00 - Physical Exam Constitutional: uncomfortable, No not in pain Eyes: PERRL Ears, Nose, Mouth, Throat: hearing normal Cardiovascular: regular rate and rhythym, No tachycardia Respiratory: no respiratory distress, reduced air movement Skin: warm, other (good CMS on right foot) Neurologic: AAOx3 Psychiatric: anxious ICD10 Worksheet Patient Problems: Problems Problem Status Onset Pneumonia Acute - ICD10 Problem Qualifiers (1) Pneumonia Qualifiers: Laterality: bilateral
[2018-07-13] MEDS ORDERED: fentaNYL 100 MCG/2 ML INJ IVP ONE ×2 (12:32→12:45)
[2018-07-13] MEDS ORDERED: HYDROmorphONE/DILAUDID 1 MG/ML INJ IVP PRN (13:21)
--- NOTE | 2018-07-13 13:25 | SOAPPROG ---
SOAP Progress Note Assessment/Plan: Assessment: tibial shaft fx, IM nail yesterday pneumonia Plan: Called in to see him for severe pain compartments completely soft 2+ pulses PT DP sensation intact through tib, spn, dpn, sural and sapheous distribution most intense pain at knee and ankle in area of incisions will increase oral oxycondone and give toradol will be evaluated to indwelling blocks by anesthesia 07/13/18 13:22 Objective: Vital Signs Temp Pulse Resp BP Pulse Ox 36.7 C 77 20 148/91 H 97 07/13/18 12:03 07/13/18 12:03 07/13/18 12:03 07/13/18 12:03 07/13/18 12:03 Microbiology 07/13/18 10:30 Respiratory Panel (PCR) - Final Nasal, Sinus - [place] Viral Transport 07/10/18 18:15 Respiratory Panel (PCR) - Final Nasal, Sinus - Swab No Organism Detected By Pcr Laboratory Results 07/12/18 04:25 07/12/18 04:25 07/12/18 07/13/18 07/14/18 05:59 05:59 05:59 Intake Total 3635 3250 Output Total 3350 1350 Balance 285 1900 PT 13.1 SEC (12.0-15.0) 07/10/18 15:00 INR 1.03 (0.83-1.16) 07/10/18 15:00 ICD10 Worksheet Patient Problems: Problems Problem Status Onset Pneumonia Acute
[2018-07-13] MEDS ORDERED: DIAZEPAM 5 MG TAB PO PRN (13:27)
[2018-07-13] MEDS ORDERED: PUMP SET NB SCH (14:00)
[2018-07-13] MEDS ORDERED: ROPIVACAINE NB SCH (14:00)
[2018-07-13] MEDS: KETOROLAC 15 MG/1 ML SDV IVP SCH ×2 (17:27→23:51)
[2018-07-13] MEDS: DOXYCYCLINE HYCLATE 100 MG CAP/TAB PO SCH (22:05)
[2018-07-14] MEDS: oxyCODONE IR 5 MG TAB PO PRN ×10 (02:11→21:57)
[2018-07-14] MEDS: METHOCARBAMOL 750 MG TAB PO PRN ×2 (04:20→22:28)
[2018-07-14] MEDS: KETOROLAC 15 MG/1 ML SDV IVP SCH ×3 (06:10→17:21)
[2018-07-14] MEDS: ACETAMINOPHEN 500 MG TAB PO SCH (06:14)
[2018-07-14] MEDS: SENNOSIDES/DOCUSATE SODIUM TAB PO SCH ×2 (08:11→19:56)
[2018-07-14] MEDS: DOXYCYCLINE HYCLATE 100 MG CAP/TAB PO SCH ×2 (08:11→19:51)
[2018-07-14] MEDS: DIAZEPAM 2 MG TAB PO PRN ×2 (08:11→16:19)
[2018-07-14] MEDS: ENOXAPARIN 30 MG/0.3 ML SYR SC SCH ×2 (08:12→19:54)
--- NOTE | 2018-07-14 08:51 | HOSPPROG ---
Hospitalist Progress Note Assessment/Plan: 23 y/o male presenting w/ right tibia fracture and was scheduled for IM nailing today w/Dr. Lozano however presented hypoxemic and tachycardic. Upon further imaging w/ Chest CTA reveals bilateral pneumonia, no pulmonary embolism. *pna -blood cx show no growth -procalcitonin elevated at 0.36 -urine legionella, Strep pneumo neg -doxy and ceftriaxone/(dc ceftriaxone after today's dose) -has small bilateral pleural effusions *r mid-shaft tibia fracture ORIF *severe pain due to the surgery -pain was better managed last night and now is worsening -plan discussed w Leonid and family *tachycardia -from pain and pna -improving, suspect he has some anxiety *thrombocytopenia -hx of this, no clear cut etiology *r lower lobe noncalcified, non specific 10 mm lung nodule -will need repeat imaging in 3 months -patient is a non smoker *hx of IBS *elevated LFT's -increased today -will check a hepatitis panel -will get an ultrasound -will stop Tylenol *DVT prophylaxis: Lovenox per ortho *plan: get hepatitis panel, remove medications that elevate liver enzymes, will get an ultrasound to evaluate his liver and gallbladder Subjective: Leonid is c/o right lower leg pain, describes it feels "tight" Objective: Vital Signs Temp Pulse Resp BP Pulse Ox 36.7 C 96 14 143/103 H 92 07/14/18 07:48 07/14/18 07:48 07/14/18 07:48 07/14/18 07:48 07/14/18 07:48 Microbiology 07/13/18 19:07 Respiratory Panel (PCR) - Final Nasal, Sinus - [place] Viral Transport No Organism Detected By Pcr 07/13/18 10:30 Respiratory Panel (PCR) - Final Nasal, Sinus - [place] Viral Transport 07/10/18 18:15 Respiratory Panel (PCR) - Final Nasal, Sinus - Swab No Organism Detected By Pcr Laboratory Results 07/12/18 04:25 07/12/18 04:25 07/13/18 07/14/18 07/15/18 05:59 05:59 05:59 Intake Total 3250 1700 Output Total 1350 600 400 Balance 1900 1100 -400 PT 13.1 SEC (12.0-15.0) 07/10/18 15:00 INR 1.03 (0.83-1.16) 07/10/18 15:00 - Physical Exam Constitutional: appears nourished, uncomfortable, No not in pain Eyes: PERRL Ears, Nose, Mouth, Throat: hearing normal Cardiovascular: regular rate and rhythym, tachycardia Respiratory: no respiratory distress, reduced air movement Gastrointestinal: normoactive bowel sounds Skin: warm Musculoskeletal: abnormal gait Neurologic: AAOx3 Psychiatric: interacting appropriately ICD10 Worksheet Patient Problems: Problems Problem Status Onset Pneumonia Acute - ICD10 Problem Qualifiers (1) Pneumonia Qualifiers: Laterality: bilateral
--- NOTE | 2018-07-14 09:59 | SOAPPROG ---
SOAP Progress Note Assessment/Plan: Assessment: tibial shaft fx, IM nail 4/5 pneumonia Plan: Pain beeter compartments completely soft 2+ pulses PT DP sensation intact through tib, spn, dpn, sural and sapheous distribution most intense pain at knee and ankle in area of incisions continue oral pain med medical workup for elevated lfts 07/13/18 13:22 07/14/18 09:57 Subjective: pain in leg Objective: Vital Signs Temp Pulse Resp BP Pulse Ox 36.7 C 96 14 143/103 H 92 07/14/18 07:48 07/14/18 07:48 07/14/18 07:48 07/14/18 07:48 07/14/18 07:48 Microbiology 07/13/18 19:07 Respiratory Panel (PCR) - Final Nasal, Sinus - [place] Viral Transport No Organism Detected By Pcr 07/13/18 10:30 Respiratory Panel (PCR) - Final Nasal, Sinus - [place] Viral Transport 07/10/18 18:15 Respiratory Panel (PCR) - Final Nasal, Sinus - Swab No Organism Detected By Pcr Laboratory Results 07/12/18 04:25 07/12/18 04:25 07/13/18 07/14/18 07/15/18 05:59 05:59 05:59 Intake Total 3250 1700 Output Total 1350 600 400 Balance 1900 1100 -400 PT 13.1 SEC (12.0-15.0) 07/10/18 15:00 INR 1.03 (0.83-1.16) 07/10/18 15:00 dressing cdi compartments soft silt no pain with passive stretch ICD10 Worksheet Patient Problems: Problems Problem Status Onset Pneumonia Acute
--- NOTE | 2018-07-14 10:49 | PCMIDPN ---
Assessment/Plan: 1. Atypical pneumonia in patient with minimal symptoms status post right ORIF: Patient is markedly improved. Will discontinue ceftriaxone today, especially given exacerbation of liver function tests as outlined below. Yesterday, recommended 10 days of doxycycline for atypical pneumonia that was fairly impressive radiographically, but re-thinking this, especially with improvement in symptoms, will only treat for 7 days and not 10.(10d is what is recommended when azithromycin is not used, given its significantly longer half-life). Stop date placed by pharmacy, last dose Sunday night. No symptoms suggestive of pill esophagitis, but educated him to drink plenty of water after taking the medication. 2. Elevated liver function tests: Stop ceftriaxone as per the above, but it should be noted that patient has unexplained elevation in his liver function tests at baseline. Hepatitis serologies have been ordered by Erinn Moreno. He will also have an ultrasound today. Will add RASTA and smooth muscle antibodies, especially given malar rash, and history of unexplained transaminitis. Over 25 min spent with this patient today. Subjective: Feeling much better. Entire family is in the room. Had some issues with pain control yesterday. Not coughing. Talked him about plan for doxycycline and antibiotics moving forward. Objective: Ceftriaxone 1 g IV daily day 5 Doxycycline 100 mg p. O. Twice daily day 3 (atypical coverage day 08/13) 92% on room air Vital Signs Temp Pulse Resp BP Pulse Ox 36.7 C 96 14 143/103 H 92 07/14/18 07:48 07/14/18 07:48 07/14/18 07:48 07/14/18 07:48 07/14/18 07:48 Microbiology 07/13/18 19:07 Respiratory Panel (PCR) - Final Nasal, Sinus - [place] Viral Transport No Organism Detected By Pcr 07/13/18 10:30 Respiratory Panel (PCR) - Final Nasal, Sinus - [place] Viral Transport 07/10/18 18:15 Respiratory Panel (PCR) - Final Nasal, Sinus - Swab No Organism Detected By Pcr Laboratory Results 07/12/18 04:25 07/12/18 04:25 07/13/18 07/14/18 07/15/18 05:59 05:59 05:59 Intake Total 3250 1700 Output Total 1350 600 400 Balance 1900 1100 -400 - Physical Exam General Appearance: other (Cheeks are beet red) EENT: pharynx normal, No thrush Respiratory: lungs clear Cardiac/Chest: regular rate, rhythm, No systolic murmur Extremities: other (Right lower extremity dressing in place that I did not take down) Abdomen: non-tender, soft Skin: No rash ICD10 Worksheet Patient Problems: Problems Problem Status Onset Pneumonia Acute
[2018-07-14] MEDS: IPRATROPIUM/ALBUTEROL 3 ML DEYVIAL IH PRN (10:50)
[2018-07-15] MEDS: oxyCODONE IR 5 MG TAB PO PRN ×8 (00:01→15:04)
[2018-07-15 02:55] LABS: HEPATITIS A ANTIBODY IGM (BCH) NEGATIVE (NEGATIVE); HEPATITIS B CORE AB IGM NEGATIVE (NEGATIVE); HEPATITIS B SURFACE ANTIGEN NEGATIVE (NEGATIVE); HEPATITIS C ANTIBODY TOTAL NEGATIVE (NEGATIVE)
[2018-07-15] MEDS: KETOROLAC 15 MG/1 ML SDV IVP SCH ×3 (06:05→12:05)
[2018-07-15] MEDS: DOXYCYCLINE HYCLATE 100 MG CAP/TAB PO SCH (08:36)
[2018-07-15] MEDS: ENOXAPARIN 30 MG/0.3 ML SYR SC SCH (12:09)
[2018-07-15] MEDS: SENNOSIDES/DOCUSATE SODIUM TAB PO SCH (12:12)
[2018-07-15 12:15] VITALS: BP 137/73
--- NOTE | 2018-07-15 12:36 | PCMIDPN ---
Assessment/Plan: Assessment: 23-year-old man with pulmonary infiltrates incidentally found on chest CT during evaluation for dyspnea after right tibial shaft and right malleolar fracture. Transaminase elevation with thrombocytopenia, that may well be chronic, made atypical pathogens more likely. He has improved dramatically after his surgical fixation of the right lower extremity fractures on 07/12. Oxygen requirement has come down dramatically and he has had resolution of his fevers. The multiple pending test and he will require ongoing outpatient follow-up determine cause of transaminase elevation and thrombocytopenia. 1. Community onset pneumonia, probable atypical pathogen; improved 2. Hypoxia requiring supplemental oxygen; much improved 3. Right lower extremity tibial fracture status post intramedullary nail 2018 4. Right malleolar fracture status post ORIF 07/12/[address] 5. Thrombocytopenia, suspect chronic 6. Mild transaminase elevation, suspect chronic; worsened while inpatient will follow as an outpatient 7. Irritable bowel syndrome Plan: 1. Continue doxycycline 100 mg p.o. Twice daily; stop date 07/17/2018 2. Insert doxycycline 3. Infectious Diseases follow-up in approximately 4 weeks Shoaib Olivas MD Infectious Diseases 07/15/18 12:42 Subjective: Fevers have completely resolved. Overall improving with improvement in his appetite, improved pain after surgery, no cough, no dyspnea at rest. Objective: Vital Signs Temp Pulse Resp BP Pulse Ox 36.8 C 111 H 16 137/73 H 96 07/15/18 12:00 07/15/18 12:00 07/15/18 12:00 07/15/18 12:00 07/15/18 12:00 Microbiology 07/13/18 19:07 Respiratory Panel (PCR) - Final Nasal, Sinus - [place] Viral Transport No Organism Detected By Pcr Laboratory Results 07/12/18 04:25 07/12/18 04:25 07/14/18 07/15/18 07/16/18 05:59 05:59 05:59 Intake Total 1700 50 Output Total 600 1000 Balance 1100 -950 Medications Generic Name Dose Route Start Last Admin Trade Name Freq PRN Reason Stop Dose Admin Doxycycline Hyclate 100 mg 07/13/18 21:00 07/15/18 08:36 Doxycycline Hyclate PO 07/16/18 23:30 100 mg BID [facility] Protocol Microbiology 07/13/18 19:07 Nasal, Sinus - [place] Viral Transport Respiratory Panel ( PCR) - Final No Organism Detected By Pcr 07/13/18 10:30 Nasal, Sinus - [place] Viral Transport Respiratory Panel ( PCR) - Final 07/10/18 18:15 Nasal, Sinus - Swab Respiratory Panel (PCR) - Final No Organism Detected By Pcr 07/10/18 17:02 Blood Blood Culture - Preliminary 07/10/18 16:55 Blood Blood Culture - Preliminary Laboratory Tests 07/10/18 07/10/18 07/12/18 14:15 17:30 04:25 WBC 11.24 H 5.77 Hgb 13.7 12.3 L Plt Count 132 L 128 L Creatinine AST ALT RASTA Screen Anti-Smooth Muscle Ab Coccidioides Ab (CF) Coccid[place]ides IgM Titer Hepatitis A IgM Ab Hep Bs Antigen Hep B Core IgM Ab Hepatitis C Antibody HIV (1&2) Ag & Ab Refer Urine Legionella Ag Negative Q Fever Phase I IgG Ab Q Fever Phase I IgM Ab Q Fever Phase II IgG Ab Q Fever Phase II IgM Ab Q Fever Ab Interpret Ur Strep pneumoniae Ag Negative 07/12/18 07/12/18 07/14/18 04:25 04:25 04:33 WBC Hgb Plt Count Creatinine 0.8 AST 115 H 311 H ALT 225 H 630 H RASTA Screen Anti-Smooth Muscle Ab Coccidioides Ab (CF) Pending Coccidioides IgM Titer Pending Hepatitis A IgM Ab Hep Bs Antigen Hep B Core IgM Ab Hepatitis C Antibody HIV (1&2) Ag & Ab Refer NEGATIVE Urine Legionella Ag Q Fever Phase I IgG Ab Pending Q Fever Phase I IgM Ab Pending Q Fever Phase II IgG Ab Pending Q Fever Phase II IgM Ab Pending Q Fever Ab Interpret Pending Ur Strep pneumoniae Ag 07/14/18 07/14/18 07/14/18 04:33 04:33 08:55 WBC Hgb Plt Count Creatinine AST ALT RASTA Screen 0.87 Anti-Smooth Muscle Ab Pending [place] Ab (CF) Coccidioides IgM Titer Hepatitis A IgM Ab NEGATIVE Hep Bs Antigen NEGATIVE Hep B Core IgM Ab NEGATIVE Hepatitis C Antibody NEGATIVE HIV (1&2) Ag & Ab Refer Urine Legionella Ag Q Fever Phase I IgG Ab Q Fever Phase I IgM Ab Q Fever Phase II IgG Ab Q Fever Phase II IgM Ab Q Fever Ab Interpret Ur Strep pneumoniae Ag 07/15/18 04:35 WBC Hgb Plt Count Creatinine AST 298 H ALT 661 H RASTA Screen Anti-Smooth Muscle Ab Coccidioides Ab (CF) Coccidioides IgM Titer Hepatitis A IgM Ab Hep Bs Antigen Hep B Core IgM Ab Hepatitis C Antibody HIV (1&2) Ag & Ab Refer Urine Legionella Ag Q Fever Phase I IgG Ab Q Fever Phase I IgM Ab Q Fever Phase II IgG Ab Q Fever Phase II IgM Ab Q Fever Ab Interpret Ur Strep pneumoniae Ag - Physical Exam General Appearance: no apparent distress, non-toxic EENT: No scleral icterus Respiratory: No respiratory distress, No accessory muscle use Neck: full range of motion, supple Extremities: No erythema Skin: other (Flushing of the cheeks bilaterally) Neuro/Psych: alert, normal mood/affect, oriented x 3, No confused - Time Spent With Patient Time Spent with Patient: greater than 25 minutes (Discussed with patient and patient's mother at bedside repeat imaging delay of 8-12 weeks, ongoing evaluation for cause transaminase elevation and thrombocytopenia) Time Spent with Patient: Greater than 25 minutes spent on this patients care, greater than 50% of time spent counseling, educating, and coordinating care regarding the above mentioned plan. ICD10 Worksheet Patient Problems: Problems Problem Status Onset Pneumonia Acute
[2018-07-15 14:44] LABS: INTERPRETATION See Comments
--- NOTE | 2018-07-15 15:13 | GDS ---
[f rep st] DISCHARGE SUMMARY CHARGE DIAGNOSES: 1. Community-acquired pneumonia. 2. Acute hypoxemia. 3. Right lower extremity tibial fracture. 4. Right malleolar fracture. 5. Thrombocytopenia. 6. Mild transaminitis. 7. Irritable bowel syndrome. 8. Right lower lobe noncalcified lung nodule. CONSULTATIONS: 1. Infectious Disease. 2. Hospitalist. STUDIES AND PROCEDURES DONE: 1. Surgical intervention of the right midshaft tibia fracture. 2. Abdominal ultrasound. PHYSICAL EXAM: GENERAL: The patient is alert. VITAL SIGNS: Afebrile at 36.8, pulse is 100, respir atory rate 16, blood pressure is 137/73, saturating 96% on room air. I have seen and evaluated the p atient on the day of discharge. HOSPITAL COURSE: The patient is a 23-year-old male who fell roller skating and sustained a tibial sh aft fracture. He received surgical intervention from Dr. Lozano. He was admitted and evaluated, finesse gnosed with: 1. Atypical pneumonia. During this hospitalization, he received a consultation from Infectious Dise ase. He was treated with antibiotic therapy. He will be discharged on oral antibiotics to finish in the outpatient setting. 2. Acute hypoxemic respiratory failure. This was in the setting of pneumonia and has resolved. 3. Right midshaft tibia fracture. This is postsurgical, is stable, and follow up with Orthopedics. 4. Severe pain. He has been treated with pain medications and will continue these at the time of di sposition. 5. Tachycardia in the setting of pain, as well as pneumonia. He has no signs of other complication. 6. Transaminitis. Patient is reported to have elevated liver enzymes at baseline. A hepatitis pane l was performed that is within normal limits. An abdominal ultrasound was performed that noted mild gallbladder sludge but no other acute identifiable causes. This could be secondary to patient's acut e infection, as well as antibiotic therapy. His liver enzymes will be followed in the outpatient set ting and monitored per laboratory recommendations. 7. History of irritable bowel disease. This is stable. 8. Right lower lobe noncalcified 10 mm lung nodule. It is recommend the patient have a repeat CT sc an in 3 months. 9. DVT prophylaxis. Will continue aspirin at the time of disposition. DISCHARGE: The patient will be discharged home independently with his mother. There are no pending studies. Followup will be with Dr. Lozano on July 18, as he already has an appointment [facility]. He will also follow up with Infectious Disease in 4 weeks. I have discussed this with the patient, as well as his mother. He is in agreement with this plan. DISCHARGE MEDICATIONS: Please refer to EMR form. I have provided the patient prescriptions for oxyc odone IR 15 mg #30, as well as Robaxin and doxycycline. He will continue his previously prescribed h ome medications and refrain from any further Tylenol use at this time. TIME SPENT WITH PATIENT: I spent greater than 35 minutes in the care, coordination, and management o f the patient's disposition. /[id number]/MODL
--- NOTE | 2018-07-15 16:23 | ASMTLACE ---
LACE Length of stay for Answers: 4-6 days current admission Acuity / Level of Answers: Yes Care: Did the patient have an inpatient admission? # of Emergency department Answers: 0 visits in the last 6 months Social determinants Answers: Mental health diagnosis (anxiety, depression, pers onality disorders, etc.) Score: 10 Date Signed: 07/15/2018 04:04 PM Electronically Signed By:ADELINE Coley
--- NOTE | 2018-07-15 16:24 | ASMTCMCOM ---
CM Note CM Note Notes: Pt medically stable for d/c with family support, no CM d/c needs identified. OT rec home, PT rec home/outpatient. Pt to follow up with ortho and ID. Date Signed: 07/15/2018 04:05 PM Electronically Signed By:ADELINE Coley
== END 2018-07-15 16:07 | disposition home or self-care (01) | DRG 492 ==
LOC: FSGY 12:48 → F3E 13:58 → F3N 14:49
PROVIDERS: ADMIT Orthopaedic Surgery; ATTEND Orthopaedic Surgery
PROC: 0QSG06Z Reposition Right Tibia with Intramedullary Internal Fixation Device, Open Approach (ICD-10-PCS; principal; 2018-07-12 10:00)
PROC: 0QSG04Z Reposition Right Tibia with Internal Fixation Device, Open Approach (ICD-10-PCS; principal; 2018-07-12 10:00)
DX: S82.201A Unspecified fracture of shaft of right tibia, initial encounter for closed fracture (principal); S82.391A Other fracture of lower end of right tibia, initial encounter for closed fracture; Y93.51 Activity, roller skating (inline) and skateboarding; V00.111A Fall from in-line roller-skates, initial encounter; J18.9 Pneumonia, unspecified organism; J96.01 Acute respiratory failure with hypoxia; R91.1 Solitary pulmonary nodule; K58.9 Irritable bowel syndrome, unspecified; R74.0 Nonspecific elevation of levels of transaminase and lactic acid dehydrogenase [LDH]; D69.6 Thrombocytopenia, unspecified
CPT/HCPCS: 86255-90; 86635-90; 86638-90; 97116-GP; 97161-GP; 97165-GO; 97530-GP; 97535-GO; C1713; G0472; J0690; J0696; J1170; J1650; J1885; J2060; J2250; J2270; J2405; J2704; J2795; J3010; Q9967

== ENCOUNTER → 2018-10-07 | Outpatient (CLI) | payer OTHER | LOC: FIMAGING 09:29 ==